=== PATIENT | female | born 1975 | race Caucasian/White ===

== ENCOUNTER 2016-11-01 10:35 | Inpatient (IN) | payer OTHER ==
[~2016-11-01] VITALS: Ht 157.5 cm; Wt 81.6 kg
[2016-11-01 13:06] VITALS: BP 138/90
--- NOTE | 2016-11-01 13:35 | NUR ---
ADMISSION NOTE Patient is 41 yr old female admitted AT 13:38PM for supervised alcohol withdrawal. Patient is alert and oriented X4, full code, with NKA. Vitals WNL, reports pain 5/10 on bilateral wrists, Denies SOB, chest pain, skin is intact, gait is steady and ambulates independently. Patient reports medical history of asthma and depression. Patient reports family history of abuse, his father drinks alcohol. Patient is able to respond to questions, cooperative during the admission interview. Denies suicidal or homicidal ideation at this time. Initial CIWA is 14. CIWA reassessment was 14. Most recent CIWA is 8. Complained of n/v, chills, sweating, tremors, wrist pain, diarrhea. Patient received PRN zofran, motrin, clonidine Ativan 1mg, and imodium. Patient is receiving NS infusion at 125m/hr. Patient was also oriented to unit, room and call lights, oriented to unit routines and activity groups, and provided with hygiene supplies. Patient showered. EKG was done. Pt stated she has no PCP at this time. Substance use history per patient report: 1) Alcohol - pt. reports last dose was today 11/01/16 and drank 8 oz, and states she has been drinking 750-1.5L of rum daily X4 months . Pt. reports she started using at age 21. 2) Marijuana - pt. reports last dose 10/31/16 used few puffs X1 day. Pt. reports she started using 25 years ago. Rehab history: Patient reports she went to a rehab facility in [place] but cannot recall the name. She was in the program X6 weeks starting on the week of January. Patient reports that she went to urgent care in [place] on 10/24/16 for detox and was later transferred to ER in [place] and was discharged from there.
--- NOTE | 2016-11-01 13:35 | NUR ---
ADMISSION NOTE Patient is 41 yr old female admitted at 13:38PM for supervised alcohol withdrawal. Patient is alert and oriented X4, full code, with NKA. Patient's HR on admission was 120, HR was 98 at 4pm, reports pain 5/10 on bilateral wrists. Denies SOB, chest pain, skin is intact, gait is steady and ambulates independently. Patient reports medical history of asthma and depression. Patient reports family history of abuse, his father drinks alcohol. Patient is able to respond to questions, cooperative during the admission interview. Denies suicidal or homicidal ideation at this time. Initial CIWA is 14. CIWA reassessment was 14. Most recent CIWA is 8. Complained of n/v, chills, sweating, tremors, wrist pain, diarrhea. Patient received PRN zofran, motrin, clonidine Ativan 1mg, and imodium. Patient is receiving NS infusion at 125m/hr. Patient was also oriented to unit, room and call lights, oriented to unit routines and activity groups, and provided with hygiene supplies. Patient showered. EKG was done. Pt stated she has no PCP at this time. Substance use history per patient report: 1) Alcohol - pt. reports last dose was today 11/01/16 and drank 8 oz, and states she has been drinking 750-1.5L of rum daily X4 months . Pt. reports she started using at age 21. 2) Marijuana - pt. reports last dose 10/31/16 used few puffs X1 day. Pt. reports she started using 25 years ago. Rehab history: Patient reports she went to a rehab facility in [place] but cannot recall the name. She was in the program X6 weeks starting on the week of January. Patient reports that she went to urgent care in [place] on 10/24/16 for detox and was later transferred to ER in [place] and was discharged from there.
[2016-11-01 13:41] LABS: *AMPHETAMINE, URINE NEGATIVE (NEGATIVE); *BARBITURATE, URINE NEGATIVE (NEGATIVE); *CANNABINOID, URINE POSITIVE (NEGATIVE); *COCCAINE, URINE NEGATIVE (NEGATIVE); *OPIATE, URINE NEGATIVE (NEGATIVE); *PHENCYCLIDINE SCREEN,URINE NEGATIVE (NEGATIVE)
--- NOTE | 2016-11-01 13:55 | NUR ---
MD Communication: Informed Dr. Manzano of patient's arrival in the unit and patient's current condition. MD will enter in orders at this time. Awaiting for new orders. Patient will be started on 5-day Ativan taper as ordered.
[2016-11-01] MEDS ORDERED: LOPERAMIDE HCL 2 MG CAPSULE PO PRN (14:00)
[2016-11-01] MEDS ORDERED: MIRALAX 17 GM POWD.PACK PO PRN (14:00)
[2016-11-01] MEDS ORDERED: LORAZEPAM 2 MG/1 ML VIAL IM PRN (14:00)
[2016-11-01] MEDS ORDERED: LORAZEPAM 1 MG TABLET PO PRN ×2 (14:00)
[2016-11-01] MEDS ORDERED: ACETAMINOPHEN 325 MG TABLET PO PRN (14:00)
[2016-11-01] MEDS ORDERED: diphenhydrAMINE 50 MG CAPSULE PO PRN (14:00)
[2016-11-01] MEDS ORDERED: ONDANSETRON 4 MG/2 ML VIAL IM PRN (14:00)
[2016-11-01] MEDS ORDERED: THIAMINE HCL 200 MG/2 ML VIAL IM ONE (14:00)
[2016-11-01] MEDS ORDERED: MAGNESIUM HYDROXIDE 30 ML LIQUID UDC PO PRN (14:00)
[2016-11-01] MEDS ORDERED: MAG HYDROX/AL HYDROX/SIMETH 30 ML LIQUID UDC PO PRN (14:00)
[2016-11-01 14:05] LABS: *URINE HCG, QUAL NEGATIVE (NEGATIVE)
[2016-11-01] MEDS: DICYCLOMINE HCL 20 MG TABLET PO PRN (14:32)
[2016-11-01] MEDS: LOPERAMIDE HCL 2 MG CAPSULE PO PRN (14:32)
[2016-11-01] MEDS: CLONIDINE HCL 0.1 MG TABLET PO PRN (14:32)
[2016-11-01] MEDS: IBUPROFEN 400 MG TABLET PO PRN (14:32)
[2016-11-01] MEDS: ONDANSETRON ODT 4 MG TAB.RAPDIS SL PRN (14:33)
--- NOTE | 2016-11-01 14:33 | NUR ---
PRN Clonidine/Imodium/Motrin/Zofran and Ativan 1 mg PO given: Patient's CIWA 14 upon admission. Noted with x 1 episode of nausea and 2 episodes of loose watery stools. Also noted with complain of anxiety, chills, hot flashes. Medicated patient with PRN Clonidine/imodium/Motrin/Zofran and Ativan 1 mg PRN PO as ordered. Will monitor for effectiveness.
--- NOTE | 2016-11-01 15:33 | NUR ---
Re-assessment: Patient's CIWA 8. Less sweating, less agitation, anxiety, chills, hot flashes noted. Nausea ceased. No further episodes of diarrhea noted.
[2016-11-01 16:00] VITALS: BP 109/69
[2016-11-01] MEDS: IV NS 1000 ML 1,000 ML IV SCH ×2 (16:19→22:13)
[2016-11-01] MEDS ORDERED: ONDANSETRON 4 MG/2 ML VIAL IV PRN (16:30)
--- NOTE | 2016-11-01 16:45 | NUR ---
IV insertion Pt was uncooperative with prior IV attempts, 22G IV inserted to R AC x 1 attempt, rapid blood return noted. IVF started. Pt tolerated well.
[2016-11-01 16:53] LABS: BASOPHILS # (AUTO) 0.1 K/uL (0.0-8.0); BASOPHILS % (AUTO) 0.3 % (0.0-2.0); EOSINOPHILS # (AUTO) 0.1 K/uL (0.0-0.7); EOSINOPHILS % (AUTO) 0.4 % (0.0-7.0); HEMATOCRIT 35.2 % (31.2-41.9); HEMOGLOBIN 11.9 g/dL (10.9-14.3); LYMPHOCYTES # (AUTO) 0.7 K/uL (20.0-40.0); LYMPHOCYTES % (AUTO) 3.8 % (20.5-51.5); MEAN CORPUSCULAR HEMOGLOBIN 29.1 uug (24.7-32.8); MEAN CORPUSCULAR HGB CONC 34 g/dL (32.3-35.6); MEAN CORPUSCULAR VOLUME 86.1 fL (75.5-95.3); MONOCYTES # (AUTO) 0.4 K/uL (2.0-10.0); NEUTROPHILS # (AUTO) 18.2 K/uL (1.8-8.9); NEUTROPHILS % (AUTO) 93.5 % (38.5-71.5); PLATELET COUNT (AUTO) 196 K/uL (179-408); RED BLOOD CELL COUNT(AUTO) 4.09 MIL/uL (3.63-4.92); RED CELL DISTRIBUTION WIDTH 16.6 % (12.3-17.7); WHITE BLOOD COUNT (AUTO) 19.5 K/uL (3.8-11.8)
[2016-11-01 16:55] LABS: ALANINE AMINOTRANSFERASE 21 U/L (14-59); ALBUMIN 3.4 g/dL (3.4-5.0); ALKALINE PHOSPHATASE 74 U/L (50-136); AMYLASE 77 U/L (25-115); ASPARTATE AMINOTRANSFERASE 19 U/L (15-37); BILIRUBIN,TOTAL 0.8 mg/dL (0.2-1.0); CALCIUM 8.3 mg/dL (8.5-10.1); CARBON DIOXIDE 25 mmol/L (21-32); CHLORIDE 99 mmol/L (98-107); CREATININE 1.1 mg/dL (0.6-1.3); GFR 55 mL/min (>60); GLUCOSE 164 mg/dL (74-106); LIPASE 114 U/L (73-393); MAGNESIUM 1.5 mg/dL (1.8-2.4); SODIUM SERUM 136 mmol/L (136-145); TOTAL PROTEIN, SERUM 7.8 g/dL (6.4-8.2); UREA NITROGEN, BLOOD 10 mg/dL (7-18)
[2016-11-01 17:00] LABS: ETHANOL < 3 MG/DL (0-0)
[2016-11-01 17:06] LABS: THYROID STIMULATING HORMONE 1.077 mIU/mL (0.358-3.740)
--- NOTE | 2016-11-01 17:08 | NUR ---
communication Notified Dr Manzano of Mag of 1.3, K of 3.0, glucose of 164 and WBS of 19.5 Ordered: KCL 40 Meq PO x 1 now Mag ox 800mg PO X 1 now AM labs: CBC, BMP, Mag and phos. All orders entered, unable to enter orders at this time.
[2016-11-01] MEDS ORDERED: MAGNESIUM OXIDE 400 MG TABLET PO ONE (17:15)
[2016-11-01] MEDS ORDERED: POTASSIUM CHLORIDE 20 MEQ TAB.PRT.SR PO ONE (17:15)
[2016-11-01] MEDS ORDERED: MELA1TAB9 PO (17:31)
[2016-11-01] MEDS ORDERED: ALBU0.63 IH (17:31)
[2016-11-01 18:10] LABS: BAND % (MANUAL) 12 % (0-10); LYMPHOCYTES % (MANUAL) 2 % (20-40); MONOCYTES % (MANUAL) 2 % (2-10); NEUTROPHILS % (MANUAL) 84 % (42-75); PLATELET ESTIMATE ADEQUATE
[2016-11-01 18:11] LABS: ANISOCYTOSIS 1+
--- NOTE | 2016-11-01 18:17 | NUR ---
END OF SHIFT Patient is 41 yr old female admitted for supervised alcohol withdrawal. Patient is alert and oriented X4, full code, with NKA. Vitals WNL, denies pain at this time. Denies SOB, chest pain, skin is intact, gait is steady and ambulates independently. Denies suicidal or homicidal ideation at this time. Most recent CIWA is 8. Patient reports n/v has resolved at this time. No diarrhea since admission. Complains of chills, sweating, tremors, wrist pain. Patient is receiving NS infusion at 125m/hr. New IV access on RAC, patent with good blood return. Remains compliant with plan of care. Tolerated dinner without n/v and ate about 25%. Potassium and magnesium were replaced. All needs met. cook chiefhourly shift will continue to monitor patient.
[2016-11-01 18:21] LABS: HIV-1 p24 ANTIGEN NON REACTIVE (NONREACTIVE); HIV-1/2 ANTIBODY NON REACTIVE (NONREACTIVE)
--- NOTE | 2016-11-01 19:30 | NUR ---
START OF SHIFT NOTES : Patient is 41 yr old female admitted for supervised alcohol withdrawal. Patient is alert and oriented X4, full code, with NKA. Denies SOB, chest pain, skin is intact, gait is steady and ambulates independently. Denies suicidal or homicidal ideation at this time. Most recent CIWA is 8 at 17:00. Patient reports n/v has resolved at this time. Complains of mild wrist pain 2/10. Patient is receiving NS infusion at 125m/hr. New IV access on RAC, patent with good blood return. Remains compliant with plan of care. Potassium and magnesium were replaced. Safety measures in place : bed on lowest position with side rails x2 up for safety, call light within reach. Will continue to monitor closely and offer help.
[2016-11-01 20:00] VITALS: BP 100/74
[2016-11-02] VITALS (7 sets, daily range): BP systolic 83–113; BP diastolic 57–78
--- NOTE | 2016-11-02 01:00 | NUR ---
PRN MOTRIN, VISTARIL, CLONIDINE Pt. complains of increased level of anxiety, flashes, body ache 12/20 . PRN MOTRIN, VISTARIL, CLONIDINE as ordered. Safety measures in place : bed on lowest position with side rails x2 up for safety, call light within reach. Will continue to monitor closely and offer help.
[2016-11-02] MEDS: HYDROXYZINE PAMOATE 25 MG CAPSULE PO PRN (01:05)
[2016-11-02] MEDS: IBUPROFEN 400 MG TABLET PO PRN ×2 (01:06→08:18)
[2016-11-02] MEDS: CLONIDINE HCL 0.1 MG TABLET PO PRN (01:06)
--- NOTE | 2016-11-02 01:55 | NUR ---
REASSESSMENT JCARLOS, VISTARIL, CLONIDINE Pt. is sleeping, unable to reassess pain level at this time, no distress noted. RR=16, unlabored and even. Safety measures in place : bed on lowest position with side rails x2 up for safety, call light within reach. Will continue to monitor closely and offer help.
[2016-11-02] MEDS: IV NS 1000 ML 1,000 ML IV SCH ×2 (06:13→15:58)
--- NOTE | 2016-11-02 07:04 | NUR ---
END OF SHIFT NOTE : Patient is 41 yr old female admitted for supervised alcohol withdrawal. Patient is alert and oriented X4, full code, with NKA. Vitals WNL, denies pain at this time. Patient reports n/v has resolved at this time. No diarrhea since admission. Patient is receiving NS infusion at 125m/hr, stopped after 06:00 (she bent her right arm all the time and IV pump alrming, she wants to sleep without noise) . IV access on RAC, patent with good blood return. PRN MOTRIN, VISTARIL, CLONIDINE were given during my shift. Temp at MN was 99,1 , Temp=98.8 at 04:00. Pt remains compliant with the treatment plan. No PRNs were given during my shift. V/S remain WNL. RR=16, even and unlabored, lungs clear upon auscultation, abdomen soft and non- distended. Pt denies nausea, vomiting and diarrhea. LAST CIWA= 2 at 0400 , INTAKE= 750 ml, voided x 1, slept 7 hours. Safety measures in place : bed on lowest position with side rails x2 up for safety, call light within reach. Will continue to monitor closely and offer help.
--- NOTE | 2016-11-02 07:34 | NUR ---
START OF SHIFT Pt 41 y/o female admitted for etoh withdrawal. Pt received in room on bed awake. Perrla. Pt alert and oriented to name, place, and time. Skin warm and slightly moist to touch. Respirations even and unlabored. Peripheral IV on right AC intact and in place with no redness or infiltration noted on site. NS @ 125mL/hr is ordered, but pt refused to have it infusing at this time even with encouragement. It was reported that pt slept for 7 hours last night. Bed on lowest position with side rails x2 up for safety. Call light within reach. No distress noted at this time.
[2016-11-02] MEDS: FOLIC ACID 1 MG TABLET PO SCH (08:17)
[2016-11-02] MEDS: LORAZEPAM 1 MG TABLET PO SCH ×4 (08:17→21:27)
[2016-11-02] MEDS: THIAMINE HCL 100 MG TABLET PO SCH (08:17)
[2016-11-02] MEDS: DICYCLOMINE HCL 20 MG TABLET PO PRN ×2 (08:18→17:35)
[2016-11-02] MEDS: MULTIVITAMINS,THERAPEUTIC TABLET PO SCH (08:18)
--- NOTE | 2016-11-02 08:18 | NUR ---
PRN Pt with c/o stomach cramps 01/19. Bentyl po prn per MD order given and tolerated well.
--- NOTE | 2016-11-02 08:19 | NUR ---
PRN Pt stated wrist pain 01/19. Motrin po prn per MD order given and tolerated well.
[2016-11-02 08:29] LABS: BASOPHILS % (AUTO) 0.5 % (0.0-2.0); EOSINOPHILS # (AUTO) 0.1 K/uL (0.0-0.7); EOSINOPHILS % (AUTO) 1.4 % (0.0-7.0); HEMOGLOBIN 10.3 g/dL (10.9-14.3); LYMPHOCYTES # (AUTO) 0.5 K/uL (20.0-40.0); LYMPHOCYTES % (AUTO) 6.8 % (20.5-51.5); MEAN CORPUSCULAR HEMOGLOBIN 29.5 uug (24.7-32.8); MEAN CORPUSCULAR HGB CONC 34 g/dL (32.3-35.6); MEAN CORPUSCULAR VOLUME 86.5 fL (75.5-95.3); MONOCYTES # (AUTO) 0.2 K/uL (2.0-10.0); MONOCYTES % (AUTO) 2.3 % (0.0-11.0); PLATELET COUNT (AUTO) 153 K/uL (179-408); RED BLOOD CELL COUNT(AUTO) 3.48 MIL/uL (3.63-4.92); RED CELL DISTRIBUTION WIDTH 16.7 % (12.3-17.7)
[2016-11-02 08:33] LABS: HEMATOCRIT 30.2 % (31.2-41.9); WHITE BLOOD COUNT (AUTO) 7.8 K/uL (3.8-11.8)
[2016-11-02] MEDS ORDERED: TUBERCULIN,PURIF.PROT.DERIV. 5 TU/0.1 ML TEST ID ONE (09:00)
[2016-11-02] MEDS ORDERED: PANTOPRAZOLE SODIUM 40 MG VIAL IV SCH (09:00)
--- NOTE | 2016-11-02 09:18 | NUR ---
PRN LORA Pt observed in bed and stated her stomach cramps is more tolerable now.
--- NOTE | 2016-11-02 09:19 | NUR ---
PRN EVAL Pt states pain level 4/10 of bilateral wrists.
[2016-11-02 10:31] LABS: CALCIUM 7.9 mg/dL (8.5-10.1); CREATININE 0.8 mg/dL (0.6-1.3); MAGNESIUM 1.7 mg/dL (1.8-2.4); PHOSPHOROUS 1.9 mg/dL (2.5-4.9); POTASSIUM 3.6 mmol/L (3.5-5.1)
[2016-11-02] MEDS ORDERED: NEUTRA PHOS PACKET PO ONE (12:00)
[2016-11-02] MEDS ORDERED: POTASSIUM CHLORIDE 10 MEQ CAPSULE.SA PO ONE (12:00)
[2016-11-02] MEDS ORDERED: MAGNESIUM OXIDE 400 MG TABLET PO ONE (12:00)
[2016-11-02] MEDS: SERTRALINE HCL 50 MG TABLET PO SCH (12:11)
[2016-11-02 12:30] LABS: ALBUMIN 2.7 g/dL (3.4-5.0); BILIRUBIN,TOTAL 0.7 mg/dL (0.2-1.0); TOTAL PROTEIN, SERUM 6.6 g/dL (6.4-8.2)
--- NOTE | 2016-11-02 13:00 | NUR ---
NSG ENTRY Pt was seen by Dr. Manzano with new orders for CXR r/o pna r/o tb, which was completed, just awaiting results. Also with new orders to continue IV NS @ 125mL /Hr.
[2016-11-02 13:26] LABS: BILIRUBIN,DIRECT 0.1 mg/dL (0.0-0.2)
--- NOTE | 2016-11-02 15:37 | NUR ---
PRN Pt with c/o stomach cramps. Bentyl po prn per MD order given and tolerated well. Addendum: 11/02/16 at 1751 by ROMA BROWN RN incorrect time [id number]
--- NOTE | 2016-11-02 17:37 | NUR ---
PRN Pt with c/o bilateral wrist pain 5/10. Tylenol po prn per MD order given and tolerated well.
[2016-11-02] MEDS: LOPERAMIDE HCL 2 MG CAPSULE PO PRN (17:44)
--- NOTE | 2016-11-02 17:49 | NUR ---
PRN Pt stated had an episode of diarrhea 30 mins ago. Immodium po prn per MD order given and tolerated well.
--- NOTE | 2016-11-02 18:07 | NUR ---
END OF SHIFT Pt 41 y/o female admitted for etoh withdrawal.Pt alert and oriented to name, place, and time. Perrla. Skin warm and slightly moist to touch. Respirations even and unlabored. Peripheral IV on right AC intact and in place with no redness or infiltration noted on site and is infusing NS @125mL/hr and is tolerating well. Pt observed mostly isolative to room all day. pt did not attend group activity. Pt medication compliant and tolerated well. No ASE noted. Bed on lowest position with side rails x2 up for safety. Call light within reach. No distress noted at this time.
[2016-11-02] MEDS ORDERED: ALBUTEROL SULFATE 1.25 MG/3 ML NEBU NEB PRN (18:30)
--- NOTE | 2016-11-02 19:30 | NUR ---
START OF SHIFT NOTE : Patient is 41 yr old female admitted for supervised alcohol withdrawal. Patient is alert and oriented X4, full code, with NKA. Denies SOB, chest pain, skin is intact, gait is steady and ambulates independently. Denies suicidal or homicidal ideation at this time. Patient is receiving NS infusion at 125m/hr. IV access on RAC, patent with good blood return. Remains compliant with plan of care. Safety measures in place : bed on lowest position with side rails x2 up for safety, call light within reach. Will continue to monitor closely and offer help.
[2016-11-03] MEDS: IV NS 1000 ML 1,000 ML IV SCH ×2 (00:52→08:02)
[2016-11-03 04:00] VITALS: BP 129/95
--- NOTE | 2016-11-03 07:01 | NUR ---
Start of Shift Endorsement received from nightshift nurse. Pt is a 41 y/o female admitted for alcohol dependence under the care of Dr. Mnazano. Pt has been placed on a 5 day Ativan taper. Pt has a 22g saline lock in R. AC. Pt is receiving NS at 125ml/hr. No PRN medications were administered. Pt is mildly withdrawing AEB CIWA 3 at 0400. Pt slept 9 hours. VS WNL, Full Code. PT is alert and oriented x4. Pt is in STABLE condition at this time. Remains compliant with medication and diet regimen. All needs have been met, All safety measures in place per hospital policy. Bed in lowest position, side rails up x2, call-light within reach. Will continue to monitor
--- NOTE | 2016-11-03 07:21 | NUR ---
END OF SHIFT NOTE : Patient is 41 yr old female admitted for supervised alcohol withdrawal. Patient is alert and oriented X4, full code, with NKA. Vitals WNL, denies pain at this time. Patient reports n/v has resolved at this time. No diarrhea since admission. Patient is receiving NS infusion at 125m/hr, stopped after 06:00 (she bent her right arm all the time and IV pump alrming, she wants to sleep without noise) . IV access on RAC, patent with good blood return. Pt. remains compliant with the treatment plan. No PRNs were given during my shift. V/S remain WNL. RR=16, even and unlabored, lungs clear upon auscultation, abdomen soft and non- distended. Pt denies nausea, vomiting and diarrhea. LAST CIWA= 3 at 0400 , INTAKE= 500 ml, voided x 3, slept 9 hours. Safety measures in place : bed on lowest position with side rails x2 up for safety, call light within reach. Will continue to monitor closely and offer help.
[2016-11-03 07:43] LABS: ALBUMIN 2.6 g/dL (3.4-5.0); BILIRUBIN,DIRECT 0.1 mg/dL (0.0-0.2); BILIRUBIN,TOTAL 0.3 mg/dL (0.2-1.0); CREATININE 0.6 mg/dL (0.6-1.3); MAGNESIUM 1.8 mg/dL (1.8-2.4); PHOSPHOROUS 2.3 mg/dL (2.5-4.9); POTASSIUM 3.5 mmol/L (3.5-5.1); TOTAL PROTEIN, SERUM 6.7 g/dL (6.4-8.2)
[2016-11-03 08:00] VITALS: BP 125/78
[2016-11-03 08:09] LABS: BASOPHILS # (AUTO) 0.1 K/uL (0.0-8.0); BASOPHILS % (AUTO) 1.7 % (0.0-2.0); EOSINOPHILS # (AUTO) 0.1 K/uL (0.0-0.7); EOSINOPHILS % (AUTO) 2.1 % (0.0-7.0); HEMATOCRIT 31.8 % (31.2-41.9); HEMOGLOBIN 10.8 g/dL (10.9-14.3); LYMPHOCYTES # (AUTO) 0.9 K/uL (20.0-40.0); LYMPHOCYTES % (AUTO) 19.4 % (20.5-51.5); MEAN CORPUSCULAR HEMOGLOBIN 29.5 uug (24.7-32.8); MEAN CORPUSCULAR HGB CONC 34 g/dL (32.3-35.6); MEAN CORPUSCULAR VOLUME 87.2 fL (75.5-95.3); MONOCYTES # (AUTO) 0.3 K/uL (2.0-10.0); MONOCYTES % (AUTO) 6.6 % (0.0-11.0); NEUTROPHILS # (AUTO) 3.4 K/uL (1.8-8.9); NEUTROPHILS % (AUTO) 70.2 % (38.5-71.5); PLATELET COUNT (AUTO) 165 K/uL (179-408); RED BLOOD CELL COUNT(AUTO) 3.65 MIL/uL (3.63-4.92); RED CELL DISTRIBUTION WIDTH 16.7 % (12.3-17.7)
[2016-11-03 08:21] LABS: WHITE BLOOD COUNT (AUTO) 4.8 K/uL (3.8-11.8)
[2016-11-03] MEDS: SERTRALINE HCL 50 MG TABLET PO SCH (09:12)
[2016-11-03] MEDS: LORAZEPAM 1 MG TABLET PO SCH ×3 (09:12→21:24)
[2016-11-03] MEDS: FOLIC ACID 1 MG TABLET PO SCH (09:12)
[2016-11-03] MEDS: MULTIVITAMINS,THERAPEUTIC TABLET PO SCH (09:12)
[2016-11-03] MEDS: ONDANSETRON ODT 4 MG TAB.RAPDIS SL PRN (09:13)
[2016-11-03] MEDS: THIAMINE HCL 100 MG TABLET PO SCH (09:13)
[2016-11-03 09:18] LABS: FOLIC ACID 18.9 NG/ML (8.6-58.9)
[2016-11-03] MEDS: PANTOPRAZOLE SODIUM 40 MG TABLET.DR PO SCH (09:26)
[2016-11-03] MEDS ORDERED: POTASSIUM CHLORIDE 10 MEQ CAPSULE.SA PO ONE ×2 (10:00→11:00)
[2016-11-03] MEDS ORDERED: NEUTRA PHOS PACKET PO ONE ×2 (10:00→11:00)
--- NOTE | 2016-11-03 10:00 | NUR ---
IV Discontinued IV has been discontinued PER Dr. Manzano. PT is able to tolerate
[2016-11-03 12:00] VITALS: BP 116/75
[2016-11-03] MEDS ORDERED: PNEUMOCOCCAL 23-VAL P-SAC VAC 0.5 ML VIAL IM ONE (15:00)
[2016-11-03 16:00] VITALS: BP 133/84
--- NOTE | 2016-11-03 18:59 | NUR ---
End of Shift Endorsement given to nightshift nurse. Pt is a 41 y/o female admitted for alcohol dependence under the care of Dr. Manzano. Pt has been placed on a 5 day Ativan taper. Pt is tolerating fluids and meals at this time and IV has been discontinued peer Dr. Manzano. Pt went down for activities but did not express any interest in participating in groups. PT received PRN Zofran at 0930 for nausea and dry heaves. Pt is mildly withdrawing AEB CIWA 4 at 1600. Intake: 3590ml, Void x4, BM x1. VS WNL, Full Code. PT is alert and oriented x4. Pt is in STABLE condition at this time. Remains compliant with medication and diet regimen. All needs have been met, All safety measures in place per hospital policy. Bed in lowest position, side rails up x2, call-light within reach. Will continue to monitor
--- NOTE | 2016-11-03 19:30 | NUR ---
START OF SHIFT NOTE : Patient is 41 yr old female admitted for supervised alcohol withdrawal. Patient is alert and oriented X4, full code, with NKA. Denies SOB, chest pain, skin is intact, gait is steady and ambulates independently. Denies suicidal or homicidal ideation at this time. Remains compliant with plan of care. Safety measures in place : bed on lowest position with side rails x2 up for safety, call light within reach. Will continue to monitor closely and offer help.
[2016-11-03 20:00] VITALS: BP 152/95
[2016-11-03] MEDS ORDERED: MAGNESIUM OXIDE 400 MG TABLET PO ONE (21:00)
[2016-11-03] MEDS: FERROUS SULFATE 325 MG TABEC PO SCH (21:24)
[2016-11-03] MEDS: ASCORBIC ACID 250 MG TABLET PO SCH (21:24)
[2016-11-04] VITALS: BP 112/67
[2016-11-04 04:00] VITALS: BP 118/86
[2016-11-04 05:06] LABS: HCV AB 0.1 s/co ratio (0.0-0.9); HEPATITIS B CORE AB, IgM Negative (Negative); HEPATITIS B SURFACE AG Negative (Negative)
--- NOTE | 2016-11-04 06:39 | NUR ---
END OF SHIFT NOTE : Patient is 41 yr old female admitted for supervised alcohol withdrawal. Patient is alert and oriented X4, full code, with NKA. Vitals WNL, denies pain at this time. No diarrhea since admission. Pt. remains compliant with the treatment plan. No PRNs were given during my shift. V/S remain WNL. RR=16, even and unlabored, lungs clear upon auscultation, abdomen soft and non- distended. Pt denies nausea, vomiting and diarrhea. LAST CIWA= 2 at 0400 , INTAKE= 2500ml, voided x 4 slept 7 hours. Safety measures in place : bed on lowest position with side rails x2 up for safety, call light within reach. Will continue to monitor closely and offer help.
--- NOTE | 2016-11-04 07:00 | NUR ---
Start of Shift Notes: Received patient in her room. Alert and oriented x 4. Verbally responsive. Able to make her needs known. Respirations even and unlabored. No SOB noted. Skin warm and dry to touch. Abdomen soft and non-distended with (+) BS in all 4 quadrants. No complains of N/V/D or abdominal discomfort noted. Voids independently. Bladder non-distended. Ambulatory ad luly with steady gait. Patient is a 41 year old female admitted for ETOH dependence who was placed on a 5-day Ativan taper as ordered. No adverse reactions noted. Has past medical hx of asthma and depression. FULL CODE. Regular diet. NKA. On fall and seizure precautions. Educated patient on her current plano of care for the day and her medication regimen. All needs met and attended. Safety precautions in place. Will continue to monitor closely.
[2016-11-04] MEDS: PANTOPRAZOLE SODIUM 40 MG TABLET.DR PO SCH (07:08)
[2016-11-04 07:37] LABS: BASOPHILS # (AUTO) 0.1 K/uL (0.0-8.0); BASOPHILS % (AUTO) 1.3 % (0.0-2.0); EOSINOPHILS # (AUTO) 0.1 K/uL (0.0-0.7); EOSINOPHILS % (AUTO) 2.1 % (0.0-7.0); HEMATOCRIT 36.2 % (31.2-41.9); HEMOGLOBIN 12.1 g/dL (10.9-14.3); LYMPHOCYTES # (AUTO) 1.2 K/uL (20.0-40.0); LYMPHOCYTES % (AUTO) 17.2 % (20.5-51.5); MEAN CORPUSCULAR HEMOGLOBIN 28.8 uug (24.7-32.8); MEAN CORPUSCULAR HGB CONC 33 g/dL (32.3-35.6); MEAN CORPUSCULAR VOLUME 86.2 fL (75.5-95.3); MONOCYTES # (AUTO) 0.7 K/uL (2.0-10.0); MONOCYTES % (AUTO) 10.5 % (0.0-11.0); NEUTROPHILS # (AUTO) 4.7 K/uL (1.8-8.9); NEUTROPHILS % (AUTO) 68.9 % (38.5-71.5); PLATELET COUNT (AUTO) 225 K/uL (179-408); WHITE BLOOD COUNT (AUTO) 6.8 K/uL (3.8-11.8)
[2016-11-04 08:00] VITALS: BP 131/95
[2016-11-04 08:00] LABS: ALBUMIN 3.1 g/dL (3.4-5.0); BILIRUBIN,DIRECT 0.1 mg/dL (0.0-0.2); BILIRUBIN,TOTAL 0.3 mg/dL (0.2-1.0); CALCIUM 8.6 mg/dL (8.5-10.1); CREATININE 0.8 mg/dL (0.6-1.3); MAGNESIUM 2.1 mg/dL (1.8-2.4); PHOSPHOROUS 3.2 mg/dL (2.5-4.9); POTASSIUM 3.8 mmol/L (3.5-5.1); TOTAL PROTEIN, SERUM 7.8 g/dL (6.4-8.2)
[2016-11-04] MEDS: SERTRALINE HCL 50 MG TABLET PO SCH (08:15)
[2016-11-04] MEDS: MULTIVITAMINS,THERAPEUTIC TABLET PO SCH (08:15)
[2016-11-04] MEDS: ONDANSETRON ODT 4 MG TAB.RAPDIS SL PRN (08:15)
[2016-11-04] MEDS: CLONIDINE HCL 0.1 MG TABLET PO PRN (08:15)
[2016-11-04] MEDS: FOLIC ACID 1 MG TABLET PO SCH (08:15)
[2016-11-04] MEDS: FERROUS SULFATE 325 MG TABEC PO SCH ×2 (08:15→20:29)
[2016-11-04] MEDS: THIAMINE HCL 100 MG TABLET PO SCH (08:15)
[2016-11-04] MEDS: LORAZEPAM 1 MG TABLET PO SCH ×4 (08:15→20:30)
[2016-11-04] MEDS: ASCORBIC ACID 250 MG TABLET PO SCH ×2 (08:15→20:30)
[2016-11-04] MEDS: DICYCLOMINE HCL 20 MG TABLET PO PRN (08:15)
--- NOTE | 2016-11-04 09:08 | NUR ---
PRN Zofran 4 mg ODT, Bentyl 20mg and Clonidine 0.1mg PO given: CIWA 13. Patient presented with complains of nausea, abdominal cramps, sweats, anxiety and mild agitation. Patient was medicated with Zofran 4mg, Bentyl 20 and Clonidine 0.1mg PO as ordered. Will monitor for effectiveness. Addendum: 11/04/16 at 0921 by KISHORE ASIF LVN Wrong time documented. The above PRNs were given at 0815.
--- NOTE | 2016-11-04 09:15 | NUR ---
Re-assessment: Per patient, nausea improved, less anxiety noted, abdominal cramps ceased and mild sweats noted. Will continue to monitor closely.
--- NOTE | 2016-11-04 09:30 | NUR ---
MD Communication: Patient appears tearful and anxious. Noted with verbalization of hopelessness. Denies S/I or H/I. Currently on Zoloft 100 mg PO as ordered. No adverse reactions noted. Referred patient to Dr. Cabrera.
[2016-11-04 10:12] LABS: CALCIUM, IONIZED 4.8 mg/dL (4.5-5.6)
[2016-11-04 12:00] VITALS: BP 127/89
--- NOTE | 2016-11-04 14:40 | NUR ---
New Orders: N.O obtained from MD Manzano for patient to have UA and C&S. Orders noted and carried out.
[2016-11-04 16:00] VITALS: BP 140/89
[2016-11-04 16:52] LABS: *BILIRUBIN,URIN NEGATIVE (NEGATIVE); *BLOOD, URINE NEGATIVE (NEGATIVE); *KETONES,URINE NEGATIVE (NEGATIVE); *PROTEIN,URINE NEGATIVE (NEGATIVE); *UROBILINOGEN,URINE 0.2 E.U./dl (NORMAL); LEUKOCYTE ESTERASE ,URINE 1+ (NEGATIVE); NITRITE, URINE NEGATIVE (NEGATIVE); PH,URINE 6.5 (5.0-8.0); UGLUCOSE NEGATIVE (NEGATIVE)
[2016-11-04 17:09] LABS: *CLARITY,URINE SLIGHTLY HAZY (CLEAR); *COLOR,URINE YELLOW (YELLOW)
[2016-11-04 17:10] LABS: BACTERIA,URINE FEW /HPF (NONE SEEN); SQUAMOUS EPITHELIAL CELL,UR FEW /HPF (NONE SEEN)
--- NOTE | 2016-11-04 18:01 | NUR ---
MD Communication: Patient noted with redness to right deltoid. Noted area to be tender with appearances of hives or welts scattered around the area. Notified Dr. Manzano by charge nurse and MD will enter in orders.
[2016-11-04] MEDS ORDERED: diphenhydrAMINE 2% 28.4 GM CREAM TP PRN (18:15)
[2016-11-04] MEDS: diphenhydrAMINE 25 MG CAP PO PRN (18:43)
--- NOTE | 2016-11-04 18:43 | NUR ---
Benadryl 25 mg PO given: Patient complained of itching to right arm. Area noted with redness. Medicated patient with Benadryl 25 mg PO as ordered by MD. Will monitor for effectiveness.
--- NOTE | 2016-11-04 18:46 | NUR ---
End of Shift Notes: Patient is a 41 year old female admitted on 11/01/2016 for ETOH and marijuana dependence who was placed on a 5-day Ativan taper as ordered. No adverse reactions noted. Patient is tolerating taper well. Has past medical hx of depression and asthma. NKA. FULL CODE. Regular diet. On fall and seizure precautions. Prior to admission, patient was drinking 750cc to 1.5L of rum daily. VS monitored q 4 hours. No significant abnormalities in the patient's VS noted. Patient's withdrawal symptoms were closely monitored. Initial CIWA 13, patient presented with nausea, stomach cramps, anxiety, sweats and agitation. Patient was medicated with Zofran 4 mg ODT for nausea, Bentyl 20 mg PO for stomach cramps and Clonidine 0.1mg PO for sweating, anxiety and chills with help after 1 hour. Per patient, Ativan has been helping her with her withdrawal symptoms. Last CIWA 5. UDS ordered by MD to rule out UTI. New order received from Benadryl due to right arm itching and redness. Benadryl 25 mg PO given at 1843 for right arm itching. Requires encouragement to attend group and to socialize with her peers. Noted with episodes of tearfulness and depression. On Zoloft 100 mg Po as ordered. Requires reassurance and redirection. All needs met and attended. Will continue to monitor closely. Oral fluids encouraged. Safety precautions in place. Addendum: 11/04/16 at 1856 by KISHORE ASIF LVN Denies any complains of urinary pain or discomfort.
--- NOTE | 2016-11-04 19:10 | NUR ---
Start of Shift Pt is a 41 year old female admitted for ETOH dependence, placed on 5 day Ativan taper. PMH: asthma and depression. Allergies to pneumococcal vaccine, fall/seizure precautions, regular diet and full code. Upon assessment, pt presents with anxiety, reports feeling mild chills, skin noted with moderate sweat - clammy upon touch, pt reports feeling anxious, respirations even/unlabored, denies SOB/chest pain, denies SI/HI, bowel sounds active x4, abdomen soft. Safety measures in place, call light within reach, side rails up x2, bed locked and in low position. Will continue to monitor.
--- NOTE | 2016-11-04 19:43 | NUR ---
Benadryl 25 mg PO Reassessment Benadryl 25mg PO administered during day shift, for itching and redness noted in right arm. Upon reassessment, Pt denies itching, skin to right arm is noted to be pink in color. Needs met, safety measures in place, will continue to monitor.
[2016-11-04 20:00] VITALS: BP 130/98
[2016-11-04] MEDS: CLONIDINE HCL 0.1 MG TABLET PO SCH (20:30)
[2016-11-05] VITALS: BP 102/69
--- NOTE | 2016-11-05 | NUR ---
Vital Signs BP 102/69, pulse 81, respirations 12, SpO2 97%, temp 98.6, no reports of pain 0/10 CIWA deferred d/t pt sleeping - to assess while pt is awake as ordered. Safety measures in place. Will continue to monitor.
[2016-11-05 04:00] VITALS: BP 100/77
--- NOTE | 2016-11-05 04:00 | NUR ---
Vital Signs BP 100/77, pulse 89, respirations 12, SpO2 98%, temp 98.8, no reports of pain 0/10 CIWA deferred d/t pt sleeping - to assess while pt is awake as ordered. Safety measures in place. Will continue to monitor.
[2016-11-05] MEDS: PANTOPRAZOLE SODIUM 40 MG TABLET.DR PO SCH (06:44)
--- NOTE | 2016-11-05 07:00 | NUR ---
End of Shift Pt is a 41 year old female admitted for ETOH dependence, placed on 5 day Ativan taper. PMH: asthma and depression. Allergies to pneumococcal vaccine, fall/seizure precautions, regular diet and full code. During shift, pt presented with anxiety, reported feeling mild chills, skin noted with sweat/clammy upon touch, anxiety - scheduled taper medications administered, CIWA 5. Pt denies any itching in right arm, redness decreasing and is now noted to be pink in color. No PRN medications administered. Pt slept for 9 hours, intake of 1151 ml PO and voids x4. Safety measures in place, call light within reach, side rails up x2, bed locked and in low poisiton. Endorsed to day shift nurse.
--- NOTE | 2016-11-05 07:30 | NUR ---
Start of shift note; Received report from night nurse. Patient is a 41 y/o female admitted on 11/01/16 for ETOH dependence. Patient reported history of asthma and depression. Patient reported allergies to PNA vaccine. Patient was placed on 5 day Ativan taper, currently on her 4th day of taper, no adverse reactions noted. Right deltoid noted to have slight redness, no swelling and patient denies pain or itchiness on the affected site. Patient is on fall and seizure precaution. Bed in lowest position, call light within reach. Will continue to monitor patient.
[2016-11-05 08:00] VITALS: BP 108/71
[2016-11-05] MEDS: SERTRALINE HCL 50 MG TABLET PO SCH (08:16)
[2016-11-05] MEDS: CLONIDINE HCL 0.1 MG TABLET PO SCH ×2 (08:17→21:09)
[2016-11-05] MEDS: THIAMINE HCL 100 MG TABLET PO SCH (08:17)
[2016-11-05] MEDS: CHOLECALCIFEROL 1,000 UNIT TABLET PO SCH (08:17)
[2016-11-05] MEDS: MULTIVITAMINS,THERAPEUTIC TABLET PO SCH (08:17)
[2016-11-05] MEDS: ASCORBIC ACID 250 MG TABLET PO SCH ×2 (08:17→21:09)
[2016-11-05] MEDS: FOLIC ACID 1 MG TABLET PO SCH (08:17)
[2016-11-05] MEDS: FERROUS SULFATE 325 MG TABEC PO SCH ×2 (08:17→21:09)
[2016-11-05] MEDS: LORAZEPAM 1 MG TABLET PO SCH ×3 (08:17→21:09)
[2016-11-05] MEDS: ONDANSETRON ODT 4 MG TAB.RAPDIS SL PRN ×2 (08:25→18:19)
--- NOTE | 2016-11-05 08:25 | NUR ---
PRN medication; Patient is complaining of nausea and 1 episode of emesis. PRN Zofran 4mg ODT given as per ordered. Will continue to monitor for effectiveness of medication.
--- NOTE | 2016-11-05 09:25 | NUR ---
Re-assessment; PRN Zofran is effective, no further emesis/nausea noted. Will continue to monitor patient.
[2016-11-05 12:00] VITALS: BP 128/92
[2016-11-05 16:00] VITALS: BP 101/63
[2016-11-05] MEDS: HYDROXYZINE PAMOATE 25 MG CAPSULE PO PRN (18:10)
--- NOTE | 2016-11-05 18:14 | NUR ---
PRN medication; Patient noted to be very anxious, pacing in the room, crying. Attempted to calm the patient, relaxation techniques were ineffective. PRN Vistaril 25mg PO PRN given for anxiety. Will closely monitor patient for effectiveness of medication. Addendum: 11/05/16 at [address] [employer] JUDGE PRN Zofran 4mg ODT also given to patient for nausea.
--- NOTE | 2016-11-05 18:49 | NUR ---
End of shift note; Patient is AOX4. Patient is a 41 y/o female admitted on 11/01/16 for ETOH dependence. Patient reported history of asthma and depression. Patient reported allergies to PNA vaccine. Patient was placed on 5 day Ativan taper, currently on her 4th day of taper, no adverse reactions noted. Patient is on fall and seizure precaution. Bed in lowest position, call light within reach. Patient remained compliant with treatment plan and medication regime. Medications were effective in reducing withdrawal symptoms. Met all needs.
--- NOTE | 2016-11-05 19:14 | NUR ---
Re-assessment; PRN medications were effective. PAtient denies nausea at this time and patient appears calm and comfortable.
[2016-11-05 20:00] VITALS: BP 132/81
--- NOTE | 2016-11-05 20:00 | NUR ---
Start of Shift Note: Report received from day shift nurse. Pt is a 41 yo female admitted on 11/01/16 for medically-supervised withdrawal from ETOH. Pt reports drinking 750mL to 1.5L rum daily for 4 months. Pt also reports daily use of marijuana. Pt is on day 4 of a 5-day Ativan taper. Last day shift CIWA=3. Pt reports NKDA/NKFA but had recent localized adverse reaction to PNE vaccine. Pt is on a regular diet. Pt reports med hx: asthma and depression. Pt received in room and is resting after attending group, reports mild anxiety. Encouraged continued group participation and socialization with other clients. Bed is in low position and locked, side rails up x2, call light within reach. Will continue to monitor.
[2016-11-05] MEDS: diphenhydrAMINE 25 MG CAP PO PRN (21:09)
--- NOTE | 2016-11-05 21:09 | NUR ---
PRN Benadryl 25mg: Patient complains of itching on right shoulder related to adverse reaction from pneumonia vaccine. Administered PRN Benadryl 25mg PO as ordered. Will continue to monitor.
--- NOTE | 2016-11-05 22:10 | NUR ---
PRN Benadryl Reassessment: Patient reports decrease in itching on shoulder. PRN Benadryl 25mg effective. Will continue to monitor.
[2016-11-06] VITALS: BP 122/84
--- NOTE | 2016-11-06 | NUR ---
CIWA Deferred: CIWA assessment is deferred while patient is sleeping. V/S: 97.8, 94, 16, 98%, 122/84. Addendum: 11/06/16 at 0153 by BASSEM DUPREE RN Amended: Links added.
[2016-11-06 04:00] VITALS: BP 129/90
--- NOTE | 2016-11-06 04:00 | NUR ---
CIWA Deferred: Ordered 04:00 CIWA assessment is deferred for sleep. No s/s of acute distress noted. V/S: 98.0, 76, 16, 99%, 129/90. All safety precautions are in place. Will continue to monitor. Addendum: 11/06/16 at 0543 by BASSEM DUPREE RN Amended: Links added.
[2016-11-06] MEDS: PANTOPRAZOLE SODIUM 40 MG TABLET.DR PO SCH (06:14)
--- NOTE | 2016-11-06 07:02 | NUR ---
End of Shift Note: Pt is a 41 yo female admitted to [facility] on 11/01/16 for medically-supervised withdrawal from ETOH. Pt reports med hx: asthma and depression. Pt reports NKDA/NKFA with recent localized adverse reaction to PNE vaccine. Pt is on a regular diet. Pt reports drinking 750-1500mL rum daily for 4 months. Pt also reports daily use of marijuana. Pt is to start day 5 of a 5-day Ativan taper. Scheduled medication regime effectively managed s/s of withdrawal this shift and CIWA scores remained low. Last CIWA=1 at 20:00. PRN Benadryl was given for itching r/t PNE vaccine adverse reaction. V/S stable throughout shift, with elevated HR of 94 at 00:00. Total fluid intake this shift: 1000 ml; output: urine x 3 and BM x 0. Pt currently in bed and slept 8 hours this shift. Pt endorsed to day shift nurse.
--- NOTE | 2016-11-06 07:03 | NUR ---
Start of Shift Notes: Received patient in her room. Alert and oriented x 4. Verbally responsive. Able to make her needs known. Respirations even and unlabored. No SOB noted. Skin warm and dry to touch. Abdomen soft and non-distended with (+) BS in all 4 quadrants. No complains of N/V/D or abdominal discomfort noted. Voids independently. Bladder non-distended. On Macrobid as ordered. No adverse reactions noted. Denies dysuria. Ambulatory ad luly with steady gait. Patient is a 41 year old female admitted for ETOH dependence who was placed on a 5-day Ativan taper as ordered. No adverse reactions noted. Has past medical hx of asthma and depression. FULL CODE. Regular diet. NKA. On fall and seizure precautions. Educated patient on her current plano of care for the day and her medication regimen. Encouraged oral fluid intake and encouraged group participation to learn new skills to prevent relapse. All needs met and attended. Safety precautions in place. Will continue to monitor closely.
[2016-11-06 08:00] VITALS: BP 124/90
[2016-11-06 08:06] LABS: *CELIAC IMMUNOGLOBULIN A 325 mg/dL (87-352)
[2016-11-06 08:06] LABS: *CHLAMYDIA NAA Negative (Negative); *TRIC.VAG. NAA Positive (Negative)
[2016-11-06] MEDS: FERROUS SULFATE 325 MG TABEC PO SCH ×2 (08:34→20:26)
[2016-11-06] MEDS: THIAMINE HCL 100 MG TABLET PO SCH (08:34)
[2016-11-06] MEDS: MULTIVITAMINS,THERAPEUTIC TABLET PO SCH (08:34)
[2016-11-06] MEDS: ASCORBIC ACID 250 MG TABLET PO SCH ×2 (08:34→20:24)
[2016-11-06] MEDS: LORAZEPAM 1 MG TABLET PO SCH ×2 (08:34→20:26)
[2016-11-06] MEDS: SERTRALINE HCL 50 MG TABLET PO SCH (08:35)
[2016-11-06] MEDS: CLONIDINE HCL 0.1 MG TABLET PO SCH ×2 (08:35→20:25)
[2016-11-06] MEDS: FOLIC ACID 1 MG TABLET PO SCH (08:35)
[2016-11-06] MEDS: CHOLECALCIFEROL 1,000 UNIT TABLET PO SCH (08:35)
[2016-11-06 12:00] VITALS: BP 111/78
--- NOTE | 2016-11-06 12:17 | NUR ---
Therapist encouraged client to attend group therapy session.
--- NOTE | 2016-11-06 12:17 | NUR ---
MD Communication: Notified Dr. Manzano of patient's UA results with (+) "T.Vaginalis." Per MD, he will enter in orders. Patient denies any complains of vaginal itching or discomfort at this time. Denies any complains of abnormal vaginal discharge.
--- NOTE | 2016-11-06 14:35 | NUR ---
New Orders: New orders obtained from MD for patient to have x 1 dose of Flagyl 2gm PO as ordered. Verified with MD and verified with pharmacy, spoke with Lynda and verified that it is OK to give x 1 now due to vaginal trichomniasis. Patient education provided.
[2016-11-06] MEDS ORDERED: METRONIDAZOLE 500 MG TABLET PO ONE (15:00)
[2016-11-06 16:00] VITALS: BP 117/80
[2016-11-06 16:19] LABS: *GC NAA Positive (Negative)
[2016-11-06] MEDS: HYDROXYZINE PAMOATE 25 MG CAPSULE PO PRN (17:27)
[2016-11-06] MEDS: ONDANSETRON ODT 4 MG TAB.RAPDIS SL PRN (17:27)
--- NOTE | 2016-11-06 17:28 | NUR ---
PRN Zofran 4 mg ODT and Vistaril 25mg PO given: Patient noted with complain of nausea. No emesis noted. Patient was tearful, anxious and appears depressed after phone call from her daughter. Redirected by nurse and client healthcare science specialist with no help. Medicated patient with Zofran 4 mg ODT and Vistaril 25 mg PO as ordered. Will monitor for effectiveness.
--- NOTE | 2016-11-06 18:28 | NUR ---
Re-assessment: After speaking with the patient, PRN Vistaril and Zofran has been effective. Less anxiety noted and nausea improved.
--- NOTE | 2016-11-06 18:44 | NUR ---
End of Shift Notes: Patient is a 41 year old female admitted on 11/01/2016 for ETOH and marijuana dependence who was placed on a 5-day Ativan taper as ordered. No adverse reactions noted. Patient is tolerating taper well. Has past medical hx of depression and asthma. NKA. FULL CODE. Regular diet. On fall and seizure precautions. Prior to admission, patient was drinking 750cc to 1.5L of rum daily. VS monitored q 4 hours. No significant abnormalities in the patient's VS noted. Patient's withdrawal symptoms were closely monitored. Initial CIWA 3, anxiety and mild sweats. Last CIWA 1. PRN Zofran and PRN Vistaril was given at 1728 for nausea and anxiety with help after 1 hour. Per patient, Ativan has been helping her with her withdrawal symptoms. Requires encouragement to attend group and to socialize with her peers. All needs met and attended. Will continue to monitor closely. Oral fluids encouraged. Safety precautions in place.
--- NOTE | 2016-11-06 18:44 | NUR ---
START OF SHIFT NOTE Patient endorsed by outgoing day shift nurse. SBAR report received. Patient is a 41 year old female admitted to [facility] for ETOH withdrawal under medical supervision, placed on 5 day Ativan Taper since 09/04/16. Patient remains compliant with therapeutic plan, medications and diet regime. NKA, Full CODE, Regular Diet, Fall and Seizures Precautions. No History of Seizures. Past Medical History: Asthma; Depression. Substance use History; ETOH: " Started use of Alcohol age 21. Rum 0.75 -1,5 Liters daily during last 4 months". Last dosage of 8 oz was on 11/01/16. Marijuana started use "25 years ago". Recent Hospitalization Treatment was in [place] - 6 weeks on January,". Upon endorsement CIWA 1. Patient has mild anxiety. No tremors noted. Patient denies N/V, and diarrhea. Patient denies SI/HI. VS WNL. Breathing is unlabored and even. Patient denies SOB, and chest pain. Lungs Sounds are clear. BS are active. Abdomen is soft. Last BM's 11/06/16 "in the morning". Patient attended activities.All needs met. Safety measures in the place by hospital policy: Call light within reach, Bed in the lowest position and locked, padded rails up x2. Will continue to monitor closely.
[2016-11-06 20:00] VITALS: BP 126/97
--- NOTE | 2016-11-06 20:24 | NUR ---
PRN BENADRYL PO ADMINISTRATION Patient c/o insomnia. Patient was assessed. PRN Benadryl PO was discussed with patient. Patient was educated for actions, adverse reactions, and side effects of Benadryl. Patient return his knowledge back by verbalizing understanding. PRN Benadryl PO administrated as ordered. Patient tolerated well. Safety measures by hospital policy: Call light within reach; Bed in lowest position and locked; padded rails up x2. All needs met. Will continue to monitor closely.
--- NOTE | 2016-11-06 21:24 | NUR ---
RE-ASSESSMENT Patient sleeping on his left side. RR 12. Breathing is unlabored and even. PRN Benadryl PO was effective. Safety measures in the place by hospital policy: Call light within reach; Bed in lowest position and locked; padded rails up x2. All needs met. Will continue to monitor closely.
[2016-11-07] VITALS: BP 104/66
[2016-11-07 04:00] VITALS: BP 122/86
[2016-11-07] MEDS: PANTOPRAZOLE SODIUM 40 MG TABLET.DR PO SCH (05:57)
--- NOTE | 2016-11-07 07:11 | NUR ---
END OF SHIFT NOTE Patient is a 41 year old female admitted to [facility] for ETOH withdrawal under medical supervision, placed on 5 day Ativan Taper since 09/04/16. Patient remains compliant with therapeutic plan, medications and diet regime. NKA, Full CODE, Regular Diet, Fall and Seizures Precautions. No History of Seizures. Past Medical History: Asthma; Depression. Substance use History; ETOH: " Started use of Alcohol age 21. Rum 0.75 -1,5 Liters daily during last 4 months". Last dosage of 8 oz was on 11/01/16. Marijuana started use "25 years ago". Recent Hospitalization Treatment was in [place] - 6 weeks on January,". CIWA decreased from 4 to 2. Patient presented with mild anxiety, agitation. Tremors that can felt. Patient denies N/V, and diarrhea. Patient denies SI/HI. VS WNL. PRN Benadryl PO was effective. Patient slept 9 hours; Intake 2000 ml; Voided x4. All needs met. Safety measures in the place by hospital policy: Call light within reach; Bed in the lowest position and locked, padded rails up x2.Patient endorsed to day shift nurse. SBAR report given.
--- NOTE | 2016-11-07 07:12 | NUR ---
Start of Shift Notes: Received patient in her room. Alert and oriented x 4. Verbally responsive. Able to make her needs known. Respirations even and unlabored. No SOB noted. Skin warm and dry to touch. Abdomen soft and non-distended with (+) BS in all 4 quadrants. No complains of N/V/D or abdominal discomfort noted. Voids independently. Bladder non-distended. Denies dysuria. Ambulatory ad luly with steady gait. Patient is a 41 year old female admitted for ETOH dependence who was placed on a 5-day Ativan taper as ordered. No adverse reactions noted. Has past medical hx of asthma and depression. FULL CODE. Regular diet. NKA. On fall and seizure precautions. Educated patient on her current plano of care for the day and her medication regimen. Encouraged oral fluid intake and encouraged group participation to learn new skills to prevent relapse. All needs met and attended. Safety precautions in place. Will continue to monitor closely.
[2016-11-07 08:00] VITALS: BP 120/88
[2016-11-07] MEDS: SERTRALINE HCL 50 MG TABLET PO SCH (08:55)
[2016-11-07] MEDS: ASCORBIC ACID 250 MG TABLET PO SCH ×2 (08:55→20:54)
[2016-11-07] MEDS: MULTIVITAMINS,THERAPEUTIC TABLET PO SCH (08:55)
[2016-11-07] MEDS: CHOLECALCIFEROL 1,000 UNIT TABLET PO SCH (08:55)
[2016-11-07] MEDS: FERROUS SULFATE 325 MG TABEC PO SCH ×2 (08:55→20:53)
[2016-11-07] MEDS: FOLIC ACID 1 MG TABLET PO SCH (08:55)
[2016-11-07] MEDS: CLONIDINE HCL 0.1 MG TABLET PO SCH ×2 (08:55→20:53)
[2016-11-07] MEDS: THIAMINE HCL 100 MG TABLET PO SCH (08:55)
[2016-11-07 12:00] VITALS: BP 120/87
--- NOTE | 2016-11-07 12:20 | NUR ---
Therapist encouraged client to attend group therapy session.
[2016-11-07 14:06] LABS: *CELIAC T-TRANSGLUTAMINASE IGA <2 U/mL (0-3); *CELIAC T-TRANSGLUTAMINASE IGG 3 U/mL (0-5)
[2016-11-07] MEDS ORDERED: CEFTRIAXONE 1 G VIAL IM ONE (15:00)
[2016-11-07] MEDS ORDERED: AZITHROMYCIN 250 MG TABLET PO ONE (15:00)
[2016-11-07] MEDS ORDERED: CEFTRIAXONE 500 MG VIAL IM ONE (15:15)
[2016-11-07 16:00] VITALS: BP 119/76
--- NOTE | 2016-11-07 16:13 | NUR ---
New orders: Patient (+) for Trichominasis and Gonorrhea. Medicated patient with x 1 order for 250 mg of Rocephin IM and 1 GM of Azithromycin per MD. Education provided and patient informed. Oral fluids encouraged. Denies any pain or discomfort noted at this time.
[2016-11-07 16:57] LABS: *AMPHETAMINE, URINE NEGATIVE (NEGATIVE); *BARBITURATE, URINE NEGATIVE (NEGATIVE); *CANNABINOID, URINE POSITIVE (NEGATIVE); *COCCAINE, URINE NEGATIVE (NEGATIVE); *OPIATE, URINE NEGATIVE (NEGATIVE); *PHENCYCLIDINE SCREEN,URINE NEGATIVE (NEGATIVE)
--- NOTE | 2016-11-07 18:41 | NUR ---
End of Shift Notes: Patient is a 41 year old female admitted on 11/01/2016 for ETOH and marijuana dependence who was placed on a 5-day Ativan taper as ordered. No adverse reactions noted. Patient is tolerating taper well. Has past medical hx of depression and asthma. NKA. FULL CODE. Regular diet. On fall and seizure precautions. Prior to admission, patient was drinking 750cc to 1.5L of rum daily. VS monitored q 4 hours. No significant abnormalities in the patient's VS noted. Patient's withdrawal symptoms were closely monitored. Initial CIWA 1 due to anxiety, Last CIWA 0. Patient completed her taper and will be discharging tomorrow. UDS in and resulted. Requires encouragement to attend group and to socialize with her peers. All needs met and attended. Will continue to monitor closely. Oral fluids encouraged. Safety precautions in place.
--- NOTE | 2016-11-07 18:41 | NUR ---
START OF SHIFT NOTE Patient is a 41 year old female admitted to [facility] for ETOH withdrawal under medical supervision, placed on 5 day Ativan Taper since 09/04/16. Patient remains compliant with therapeutic plan, medications and diet regime. NKA, Full CODE, Regular Diet, Fall and Seizures Precautions. No History of Seizures. Past Medical History: Asthma; Depression. Substance use History; ETOH: " Started use of Alcohol age 21. Rum 0.75 -1,5 Liters daily during last 4 months". Last dosage of 8 oz was on 11/01/16. Marijuana started use "25 years ago". Recent Hospitalization Treatment was in [place] - 6 weeks on January,". Upon endorsement CIWA 2. Patient has mild anxiety and agitation. No tremors noted. Patient denies N/V, and diarrhea. Patient denies SI/HI. VS WNL. Breathing is unlabored and even. Patient denies SOB, and chest pain. Lungs Sounds are clear. BS are active. Abdomen is soft. Last BM's 11/07/16 .Patient attended activities. Patient 's completed taper , and has been discharging tomorrow, 11/08/16. All documentation has been completed. UDS test results placed in the chart. All needs met. Safety measures in the place by hospital policy: Call light within reach, Bed in the lowest position and locked, padded rails up x2. Patient endorsed by outgoing day shift nurse. SBAR report received.
[2016-11-07 20:00] VITALS: BP 111/79
[2016-11-07] MEDS: diphenhydrAMINE 25 MG CAP PO PRN (20:49)
--- NOTE | 2016-11-07 20:49 | NUR ---
PRN BENADRYL PO ADMINISTRATION Patient c/o insomnia. Patient 's assessed. VS WNL. PRN Benadryl PO discussed with patient. Patient 's educated for actions, adverse reactions, and side effects of Benadryl and Tylenol . Patient return his knowledge back by verbalizing understanding. PRN Benadryl PO administrated as ordered with full glass of water. Patient tolerated well. Safety measures by hospital policy: Call light within reach; Bed in lowest position and locked; padded rails up x2. All needs met. Will continue to monitor closely.
--- NOTE | 2016-11-07 21:49 | NUR ---
RE - ASSESSMENT Patient sleeping on his bed. Breathing unlabored and even. RR 15. PRN Benadryl PO was effective. All needs met. Safety measures in the place by hospital policy: Call light within reach, Bed in the lowest position and locked, padded rails up x2. Will continue to monitor closely.
[2016-11-07] MEDS ORDERED: FERR325T28 PO (21:51)
[2016-11-07] MEDS ORDERED: CHOL10002 PO (21:51)
[2016-11-07] MEDS ORDERED: HYDR-3895 PO (21:51)
[2016-11-07] MEDS ORDERED: LORA-114 PO (21:51)
[2016-11-07] MEDS ORDERED: Sertraline Hcl PO (21:51)
[2016-11-07] MEDS ORDERED: ASCO250T5 PO (21:51)
[2016-11-07] MEDS ORDERED: DIPH50CA37 PO (21:51)
[2016-11-07] MEDS ORDERED: ALBU8.5H2 INH (21:51)
[2016-11-07] MEDS ORDERED: CLON0.1T14 PO (21:51)
[2016-11-08] VITALS: BP 106/69
[2016-11-08 04:00] VITALS: BP 122/70
--- NOTE | 2016-11-08 04:00 | NUR ---
CIWA DEFERRED CIWA deferred d/t patient sleeping to assess while patient is awake. Safety measures on place by hospital policy: Call light within reach; Bed in lowest position and locked; side rails up x2. Will continue to monitor.
[2016-11-08] MEDS: PANTOPRAZOLE SODIUM 40 MG TABLET.DR PO SCH (06:26)
--- NOTE | 2016-11-08 06:52 | NUR ---
END OF SHIFT NOTE Patient is a 41 year old female admitted to [facility] for ETOH withdrawal under medical supervision, finished 5 day Ativan Taper . Withdrawal symptoms notably improved. Patient remains compliant with therapeutic plan, medications and diet regime. NKA, Full Code, Regular Diet, Fall and Seizures Precautions. No History of Seizures. Past Medical History: Asthma; Depression. Substance use History; ETOH: " Started use of Alcohol age 21. Rum 0.75 -1,5 Liters daily during last 4 months". Last dosage of 8 oz was on 11/01/16. Marijuana started use "25 years ago". Recent Hospitalization Treatment was in [place] - 6 weeks on January,". Upon endorsement CIWA 1. Patient has mild anxiety. No tremors noted. Patient denies N/V, and diarrhea. Patient denies any suicidal or homicidal ideations. Vital Signs stable. Patient encouraged to drink and provided with PO fluids. Skin is intact, warm and dry by touch. Patient attended activities. Patient 's completed taper , and has been discharging today, 11/08/16. UDS test results placed in the chart. PRN Benadryl PO administrated to patient was effective. Patient slept 7 hours; Intake 1046 ml; Voided x3. All needs met. Safety measures in the place by hospital policy: Call light within reach, Bed in the lowest position and locked, padded rails up x2. Patient endorsed to day shift nurse in stable condition. SBAR report given.
--- NOTE | 2016-11-08 07:38 | NUR ---
START OF SHIFT NOTE: Received report from night auditor nurse. Patient is a 41 year old female admitted 11-01-16 for ETOH dependence. Pt to be discharged this AM. Pt is awake, alert and oriented X4. Color good, skin warm and dry. Respirations even and unlabored. Safety precautions observed. Call light within reach.
[2016-11-08] MEDS: SERTRALINE HCL 50 MG TABLET PO SCH (08:00)
[2016-11-08] MEDS: CHOLECALCIFEROL 1,000 UNIT TABLET PO SCH (08:00)
[2016-11-08] MEDS: FERROUS SULFATE 325 MG TABEC PO SCH (08:00)
[2016-11-08] MEDS: MULTIVITAMINS,THERAPEUTIC TABLET PO SCH (08:01)
[2016-11-08] MEDS: FOLIC ACID 1 MG TABLET PO SCH (08:01)
[2016-11-08] MEDS: ASCORBIC ACID 250 MG TABLET PO SCH (08:01)
[2016-11-08] MEDS: CLONIDINE HCL 0.1 MG TABLET PO SCH (08:01)
[2016-11-08] MEDS: THIAMINE HCL 100 MG TABLET PO SCH (08:01)
--- NOTE | 2016-11-08 08:18 | NUR ---
VSS AM meds administered. Pt signed discharge papers. No home meds.
[2016-11-08 08:39] VITALS: BP 125/86
[2016-11-08] MEDS ORDERED: LORATADINE 10 MG TABLET PO SCH (09:00)
--- NOTE | 2016-11-08 09:30 | NUR ---
VSS Pt discharged with all valuables and belongings in stable condition. To [facility] via private car Let's Roll
[2016-11-11 10:08] LABS: *CELIAC DEAMIDATED GLIADIN IGA 11 units (0-19); *CELIAC DEAMIDATED GLIADIN IGG 3 units (0-19)
== END 2016-11-08 09:30 | disposition other institution (70) | DRG 895 ==
LOC: SRC 12:56
PROVIDERS: ADMIT Internal Medicine; ATTEND Internal Medicine
PROC: HZ2ZZZZ Detoxification Services for Substance Abuse Treatment (ICD-10-PCS; principal; 2016-11-01)
PROC: HZ41ZZZ Group Counseling for Substance Abuse Treatment, Behavioral (ICD-10-PCS; 2016-11-03)
PROC: HZ31ZZZ Individual Counseling for Substance Abuse Treatment, Behavioral (ICD-10-PCS; 2016-11-04)
DX: F10.230 Alcohol dependence with withdrawal, uncomplicated (principal); F33.1 Major depressive disorder, recurrent, moderate; A54.9 Gonococcal infection, unspecified; K70.10 Alcoholic hepatitis without ascites; Y90.0 Blood alcohol level of less than 20 mg/100 ml; J45.20 Mild intermittent asthma, uncomplicated; G47.00 Insomnia, unspecified; Z83.3 Family history of diabetes mellitus; Z82.0 Family history of epilepsy and other diseases of the nervous system; N92.1 Excessive and frequent menstruation with irregular cycle; D50.9 Iron deficiency anemia, unspecified; E86.0 Dehydration; F50.9 Eating disorder, unspecified; F12.10 Cannabis abuse, uncomplicated; E87.6 Hypokalemia; E83.51 Hypocalcemia; D69.6 Thrombocytopenia, unspecified; Z72.51 High risk heterosexual behavior; E55.9 Vitamin D deficiency, unspecified; I15.9 Secondary hypertension, unspecified; E83.39 Other disorders of phosphorus metabolism; A59.00 Urogenital trichomoniasis, unspecified
CPT/HCPCS: 36415; 70030-TC; 71010; 80307; 80349; 82306; 82330; 82746; 83550; 83690; 83735; 84100; 84443; 84703; 85025; 86580; 86592; 86705; 86803; 87086; 87340; 87491; 87806; 90732; 93005; 94664; A4217; A4663; C9113; G6040-TC; J0696; J3411; J7030; Q0144; Q0162; Q0163